=== PATIENT | female | born 2000 | race Caucasian/White ===

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

== ENCOUNTER 2019-10-23 12:49 | Emergency (ER) | payer SELFPAY ==
[~2019-10-23] VITALS: Ht 162.6 cm; Wt 59.1 kg
[2019-10-23 13:19] VITALS: BP 119/70; TEMP 97.6
[2019-10-23] MEDS ORDERED: PRENATAL MVI PO (15:27)
[2019-10-23 15:36] LABS: COLLECTION METHOD CLEAN CATCH
[2019-10-23 15:46] LABS: BASO % 0.5 % (0.0-2.0); EOS # 0.1 (0.0-0.7); EOS % 0.8 % (0-4.0); GRAN # 5.3 (1.4-6.5); GRAN % 70.7 % (42.2-75.2); HEMATOCRIT 39.5 % (35.0-45.0); HEMOGLOBIN 13.5 g/dl (12.0-15.0); LYMPH # 1.5 (1.2-3.4); LYMPH % 20.3 % (20.0-51.0); MEAN CELL VOLUME 86 fl (80.0-95.0); MEAN CORPUSCULAR HEMOGLOBIN 29 pg (26.0-32.0); MEAN CORPUSCULAR HGB CONC 34 g/dl (33.0-37.0); MEAN PLATELET VOLUME 9.2 fl (7.4-10.4); MONO # 0.6 (0.1-0.6); MONO % 7.3 % (1.7-9.3); MUCOUS Present /lpf; PH 6 (5-8); PLATELET COUNT 276 K/mm3 (130-400); REDCELL DISTRIBUTION WIDTH-CV 13.4 % (11.5-14.5); SQUAMOUS EPITHELIAL 0-2 /hpf; URINE APPEARANCE Hazy; URINE BACTERIA Rare /hpf; URINE BILIRUBIN Negative (NEGATIVE); URINE BLOOD Negative (NEGATIVE); URINE COLOR Yellow; URINE GLUCOSE Negative (NEGATIVE); URINE KETONE Trace (NEGATIVE); URINE LEUKOCYTE ESTERASE Negative (NEGATIVE); URINE NITRATE Negative (NEGATIVE); URINE PROTEIN(semi-quant) Negative (NEGATIVE); URINE RBC 0-2 /hpf; URINE UROBILINOGEN Negative (NEGATIVE)
[2019-10-23 16:02] LABS: ALANINE AMINOTRANSFERASE 17 U/L (9-52); ALBUMIN 5.1 gm/dL (3.5-5.0); ALKALINE PHOSPHATASE 50 U/L (50-136); ANION GAP 10 mmol/L (7-16); AST,SGOT 26 U/L (15-37); BILIRUBIN,TOTAL 0.5 mg/dL (0.0-1.0); BLOOD UREA NITROGEN 6 mg/dL (7-17); CARBON DIOXIDE 26 mmol/L (22-30); CHLORIDE 101 mmol/L (98-107); CREATININE, serum 0.53 (0.52-1.25); GLUCOSE 118 mg/dL (74-106); LIPASE 72 U/L (23-300); POTASSIUM 3.9 mmol/L (3.4-5.0); SODIUM 138 mmol/L (137-145); TOTAL PROTEIN 8.8 gm/dL (6.4-8.2)
[2019-10-23 16:03] LABS: C-REACTIVE PROTEIN < 0.5 mg/dL (0.0-0.9)
[2019-10-23 16:11] LABS: TROPONIN-I < 0.012 ng/mL (0.000-0.035)
[2019-10-23 17:00] VITALS: PULSE 70
== END 2019-10-23 17:00 | disposition home or self-care (01) ==
LOC: COL.ER 12:49
PROVIDERS: Emergency Medicine
DX: O26.891 Other specified pregnancy related conditions, first trimester (principal); R07.89 Other chest pain; R10.9 Unspecified abdominal pain; Z3A.08 8 weeks gestation of pregnancy

== ENCOUNTER 2020-01-22 17:08 | Outpatient (CLI) | payer MEDICAID ==
[~2020-01-22] VITALS: Ht 167.6 cm; Wt 66.4 kg
[~2020-01-22 17:08] MED LIST changes: +PRENATAL MVI PO
--- NOTE | 2020-01-22 17:10 | NUR ---
Pt arrives on unit ambulatory. States right sided pain that began at 1200. Intermittent sharp pain. Rates 7-8/10 at worst. Currently 4/10. Pain feels better since onset. Denies medication for pain, back pain, and regular ctx. Pt has not noticed FM at this point. Denies vaginal bleeding and LOF. Denies N/V. Reports regular bowel movements. VSS. [place] applied. FHR noted at 150bpm with doppler. Admission assessment completed. Bed locked in low position. Call light within reach. Dr. Son on unit for delivery will update once delivered.
--- NOTE | 2020-01-22 18:30 | NUR ---
1814- Report from GORDON Morrow. 1844- Updated on patient complaints. She states this is normal round ligament pain and patient is ok to discharge home. Discharge paperwork explained by GORDON Hilario. 1904- Patient ambulatory off unit.
== END 2020-01-22 19:05 | disposition home or self-care (01) ==
LOC: LDRO 17:08
DX: O26.892 Other specified pregnancy related conditions, second trimester (principal); Z3A.20 20 weeks gestation of pregnancy

== ENCOUNTER 2020-05-13 12:33 | Inpatient (IN) | payer MEDICAID ==
[~2020-05-13] VITALS: Ht 167.6 cm; Wt 82.7 kg
[2020-05-13] VITALS (27 sets, daily range): BP systolic 95–163; BP diastolic 47–89; PULSE 57–102; TEMP 97.4–98.6
--- NOTE | 2020-05-13 13:02 | NUR ---
Pt presents to unit reporting leaking of fluid. Pt states that she started leaking around 1000 this morning, needing to change underwear a couple times and wear a pad. Pt denies regular contractions, states she feels "cramping come and go, but nothing regular", denies vaginal bleeding, and reports good movement. EFM explained and placed, vitals taken. SVE 1-2/70/-2. Amiotrace swab positive. Dr. Gatica notified.
[2020-05-13 13:59] LABS: HEMOGLOBIN 12.3 g/dl (12.0-15.0); MEAN CELL VOLUME 86 fl (80.0-95.0); MEAN CORPUSCULAR HEMOGLOBIN 29 pg (26.0-32.0); MEAN CORPUSCULAR HGB CONC 34 g/dl (33.0-37.0); MEAN PLATELET VOLUME 10.5 fl (7.4-10.4); PLATELET COUNT 210 K/mm3 (130-400); RED BLOOD COUNT 4.24 M/mm3 (4.10-5.30); REDCELL DISTRIBUTION WIDTH-CV 13.7 % (11.5-14.5)
[2020-05-13 14:05] LABS: HEMATOCRIT 36.6 % (35.0-45.0)
[2020-05-13 14:41] LABS: BAND 1 % (0-10); LYMPHOCYTE 14 % (20.0-51.0); MYELOCYTE 2 % (0-0); NEUTROPHILS 81 % (42.0-75.2); PLATELET ESTIMATE NORMAL (NORMAL)
--- NOTE | 2020-05-13 15:38 | NUR ---
1337 - Pitocin started per induction protocol per orders at 2mu/ml/hr. 1st dose ancef given by slow IV push. 1340 - RN at bedside, audible FHR deceleration over 1 minute into 60s, unable to trace FHR starting at 1341. Pt repositioned to RL with no improvement, then repositioned to LL with no improvement. Pitocin stopped at 1342. Sony Coffey, RN called to bedside, Orlin Carson RN also to bedside. RN remains unable to trace FHT. Pt repositioned atain to RL with no improvement. Dr. Gatica notified at 1345, see physician notification. FSE placed by Orlin Carson RN, FHT obtained in 50s. Pt repositioned at this time into knee chest position with oxygen mask on at 10 L/min. FHR increased steadily from 60s to 120 between 1346 and 1348. At 1349, FHR decelerated to 115, increasing to 135 at 1350. FHR continues to increase, reaching 170-180 at 1400. Pt remains in knee chest position with oxygen on. 1358 - Dr. Gatica to pt bedside, reviews strip and FHT. Per physician, pt to remain in knee chest position with oxygen at this time. Moderate variability noted in FHR with intermittent mild variable decels. 1413 - Pt repositioned RL 1415 - SVE per Dr. Gatica /- 1435 - Pt feels need to void, agrees to catheter to allow her to remain in bed, in resting position. [place] placed at 1438, pt repositioned RL 1445 - Pitocin restarted per Dr. Gatiac at 2mu/ml/hr, plan to increase per usual induction protocol. 1450 - Oxygen off.
--- NOTE | 2020-05-13 18:31 | NUR ---
Placenta delivers spont and intact. Pitocin gtt to bolus rate. Perineal inspection and repair begun. 1839 perineal repair complete, pericare complete. bed together. Pt anxoius about baby.
--- NOTE | 2020-05-13 19:27 | NUR ---
1600 - Dr. Gatica to pt bedside. SVE per provider 2-3/80/-1. IUPC placed to better trace and determine strength of contractions. 164 - Pt reporting increasing pressure with contractions. SVE 3-4/80/-1. Pt requesting epidural at this time, Artis Everett CRNA notified. 170 - Pt again reporting increasing and more constant pressure with contractions. SVE 4-5/80/-1. 1735 - Omar Michael CRNA to pt bedside for epidural placement. Pt repositioned to sitting on side of bed. Test dose given at 1742, see anesthesia record. Pt BP 90s/40s, pt reporting dizziness after dose. Pt repositioned LL, LR bolus given at 1747. RN remains at bedside. 175 - Variable decel noted with contraction. Pt repositioned RL. Variable decels continue with contractions, with FHTs decreasing into 90s. 1799 - SVE 6-7/90/0, pt repositioned LL, deep variable with FHT into 80s noted with contraction. Large, deep variable decelerations with FHR recurring over next 5 contractions. Pt repositioned RL at 1803, LL at 1805. 1809 - SVE 9/100/0. Dr. Gatica notified, see physician notification. 1817 - Noisy FHR signal from 1809 to 1818, difficult to determine baseline FHR. Derik Mckoy, GORDON to pt bedside. SVE per RN /100/0. Scalp stimualtion performed by RN 1818 - Variable decels continue with FHR dropping into 70s, recovering into 130s. 1820 - Dr. Conklin on unit and to pt bedside to evaluate. SVE /100/0 per physician. Discussed vacuum assisted delivery with pt, pt agrees to plan. Pt repositioned for delivery, nursery RN notified. 1822 - Dr. Gatica called, see phsyician notificaition. [place] catheter removed. FHTs 60s-90s. 1824 - IUPC, FSE removed by Dr. Conklin, vacuum placed. Pt pushing with contractions 1828 - Male infant delivered via vacuum assist by Dr. Conklin. suctioned, cord clamped and cut, infant taken to warmer. Care of transferred to Parviz Kimbrough RN of nursery. Cord gasses collected. 1830 - Placenta delivered spontaneously by Dr. Conklin. Lidocaine used for local pain relief for repair of 2nd degree laceration by Dr. Conklin. Pitocin started per protocol by Derik Mckoy RN. Care of pt assumed by Derik Mckoy RN at this time.
--- NOTE | 2020-05-13 19:30 | NUR ---
PT TO NURSERY VIA WC TO SEE BEING TRANSFERRED TO [facility]. REPORT TAKEN FROM Derik TYSON RN. IVF'S INFUSING WITH PITOCIN ON PUMP AND LR PER GRAVITY DRIP.
--- NOTE | 2020-05-13 20:15 | NUR ---
[facility] IS HERE PATIENT WANTS TO [facility] [place] BEDSIDE. DENIES FEELING DIZZY OR LIGHTHEADED. VS STABLE AND PATIENT WITH GOOD SKIN COLOR.
--- NOTE | 2020-05-13 21:45 | NUR ---
PATIENT TAKEN TO ROOM VIA W/C. VOIDS WTIHOUT DIFFICULTY AND [facility]ICARE INSTRUCTIONS REVIEWED. PT ENCOURAGED TO EAT DINNER. TEARFUL WITH BABY'S TRANSFER BUT COMFORTED BY MOTHER STAYING WITH PATIENT.
[2020-05-14] VITALS: BP 118/54; PULSE 73; TEMP 98.6
[2020-05-14 08:18] VITALS: BP 117/60; PULSE 78; TEMP 97.7
[2020-05-14] MEDS ORDERED: IBU800 M1 PO (10:17)
[2020-05-14] MEDS ORDERED: BREASTPUMP MC (10:18)
== END 2020-05-14 13:15 | disposition home or self-care (01) | DRG 807 ==
LOC: LDRO 12:33 → LDR 13:16 → OB 22:00
PROVIDERS: Obstetrics & Gynecology; ADMIT Obstetrics & Gynecology
PROC: 10D07Z6 Extraction of Products of Conception, Vacuum, Via Natural or Artificial Opening (ICD-10-PCS; principal; 2020-05-13)
PROC: 0KQM0ZZ Repair Perineum Muscle, Open Approach (ICD-10-PCS; 2020-05-13)
DX: O42.913 Preterm premature rupture of membranes, unspecified as to length of time between rupture and onset of labor, third trimester (principal); Z37.0 Single live birth; O70.1 Second degree perineal laceration during delivery; Z3A.36 36 weeks gestation of pregnancy
CPT/HCPCS: J0690; J2400; J2590; J7120

== ENCOUNTER 2021-11-14 10:02 | Emergency (ER) | payer MEDICAID ==
[~2021-11-14] VITALS: Ht 165.1 cm; Wt 68.2 kg
[~2021-11-14 10:02] MED LIST changes: +BREASTPUMP MC
[2021-11-14 10:32] VITALS: BP 127/85; TEMP 98.8
[2021-11-14 11:55] VITALS: PULSE 86
== END 2021-11-14 11:55 | disposition home or self-care (01) ==
LOC: COL.ER 10:02
DX: U07.1 COVID-19 (principal)

== ENCOUNTER 2022-07-23 20:49 | Emergency (ER) | payer MEDICAID ==
[~2022-07-23] VITALS: Ht 167.6 cm; Wt 68.2 kg
[2022-07-23 21:15] VITALS: TEMP 98.4
[2022-07-23 21:59] LABS: BASO # 0.1 K/mm3 (0.0-0.2); BASO % 0.5 % (0.0-2.0); EOS # 0.2 K/mm3 (0.0-0.7); EOS % 2.4 % (0.0-4.0); GRAN # 5.9 K/mm3 (1.4-6.5); GRAN % 64.8 % (42.2-75.2); HEMATOCRIT 38.1 % (37.0-47.0); HEMOGLOBIN 12.8 g/dl (12.5-16.0); LYMPH # 2.1 K/mm3 (1.2-3.4); LYMPH % 23.3 % (20.0-51.0); MEAN CELL VOLUME 90 fl (80.0-100.0); MEAN CORPUSCULAR HEMOGLOBIN 30 pg (27-31); MEAN CORPUSCULAR HGB CONC 34 g/dl (33.0-37.0); MEAN PLATELET VOLUME 9.1 fl (7.4-10.4); MONO # 0.8 K/mm3 (0.1-0.6); MONO % 8.7 % (1.7-9.3); PLATELET COUNT 280 K/mm3 (130-400); RED BLOOD COUNT 4.24 M/mm3 (4.10-5.30); REDCELL DISTRIBUTION WIDTH-CV 13.4 % (11.5-14.5)
[2022-07-23 22:18] LABS: ALANINE AMINOTRANSFERASE 14 U/L (0-55); ALBUMIN 3.8 gm/dL (3.5-5.0); ALKALINE PHOSPHATASE 42 U/L (40-150); ANION GAP 7 mmol/L (7-16); AST,SGOT 18 U/L (5-34); BILIRUBIN,TOTAL 0.3 mg/dL (0.2-1.2); BLOOD UREA NITROGEN 7 mg/dL (7-19); CALCIUM 9.1 mg/dL (8.4-10.2); CARBON DIOXIDE 26 mmol/L (22-29); CHLORIDE 109 mmol/L (98-107); CREATININE, serum 0.79 mg/dL (0.57-1.11); GLUCOSE 91 mg/dL (70-99); SODIUM 142 mmol/L (136-145); TOTAL PROTEIN 6.1 gm/dL (6.2-8.1)
[2022-07-23 22:25] LABS: TROPONIN-I < 0.010 ng/mL (0.00-0.033)
[2022-07-23 23:11] LABS: COLLECTION METHOD CLEAN CATCH
[2022-07-23 23:20] LABS: AMORPHOUS CRYSTAL Present (NOT PRESENT); SQUAMOUS EPITHELIAL 0-2 /hpf (0-10); URINE APPEARANCE Hazy (CLEAR/HAZY); URINE BACTERIA None Seen /hpf (NONE SEEN); URINE COLOR Yellow (YELLOW); URINE RBC >50 /hpf (0-2)
[2022-07-23 23:21] LABS: PH 7.5 (5.0-8.5); URINE BLOOD 3+ (NEGATIVE); URINE GLUCOSE Negative (NEGATIVE); URINE KETONE Negative (NEGATIVE); URINE NITRATE Negative (NEGATIVE); URINE PROTEIN(semi-quant) Negative (NEGATIVE); URINE UROBILINOGEN 0.2 E.U/dL (0.2-1.0)
[2022-07-24 00:30] VITALS: BP 119/74; PULSE 84
== END 2022-07-24 00:31 | disposition home or self-care (01) ==
LOC: COL.ER 20:49
PROVIDERS: Emergency Medicine; Nurse Practitioner Primary Care
DX: S06.0X9A Concussion with loss of consciousness of unspecified duration, initial encounter (principal); S00.93XA Contusion of unspecified part of head, initial encounter; R07.9 Chest pain, unspecified; F17.290 Nicotine dependence, other tobacco product, uncomplicated; Z28.310 Unvaccinated for COVID-19; W18.09XA Striking against other object with subsequent fall, initial encounter

== ENCOUNTER 2022-08-06 19:53 | Emergency (ER) | payer MEDICAID ==
[~2022-08-06] VITALS: Ht 162.6 cm; Wt 70.5 kg
[2022-08-06 20:02] VITALS: TEMP 98.7
[2022-08-06 21:15] VITALS: BP 138/78; PULSE 76
== END 2022-08-06 21:15 | disposition home or self-care (01) ==
LOC: COL.ER 19:53
DX: B08.4 Enteroviral vesicular stomatitis with exanthem (principal); Z28.310 Unvaccinated for COVID-19

== ENCOUNTER 2022-11-13 18:23 | Emergency (ER) | payer MEDICAID ==
[~2022-11-13] VITALS: Ht 167.6 cm; Wt 65.9 kg
[2022-11-13 18:39] VITALS: TEMP 99
[2022-11-13] MEDS ORDERED: FLEXERIL 1010 MG/TAB PO (20:48)
[2022-11-13 20:59] VITALS: BP 153/83; PULSE 87
[2023-05-22] MEDS ORDERED: AMOXICILLIN 50500 MG PO (01:01)
== END 2022-11-13 21:01 | disposition home or self-care (01) ==
LOC: COL.ER 18:23
DX: S16.1XXA Strain of muscle, fascia and tendon at neck level, initial encounter (principal); S39.012A Strain of muscle, fascia and tendon of lower back, initial encounter; S09.90XA Unspecified injury of head, initial encounter; Z28.310 Unvaccinated for COVID-19; Y04.0XXA Assault by unarmed brawl or fight, initial encounter; Y92.89 Other specified places as the place of occurrence of the external cause

== ENCOUNTER 2024-03-18 19:07 | Emergency (ER) | payer MEDICAID ==
[~2024-03-18] VITALS: Ht 165.1 cm; Wt 63.6 kg
[~2024-03-18 19:07] MED LIST changes: +AMOXICILLIN 50500 MG PO
[2024-03-18 19:12] VITALS: TEMP 100.5
[2024-03-18 21:04] VITALS: BP 133/82; PULSE 85
== END 2024-03-18 21:04 | disposition home or self-care (01) ==
LOC: COL.ER 19:07
DX: K04.7 Periapical abscess without sinus (principal)